=== PATIENT | female | born 1965 | race Caucasian/White ===

== ENCOUNTER 2018-07-29 20:18 | Emergency (ER) | payer OTHER ==
[~2018-07-29] VITALS: Ht 157.5 cm; Wt 104.3 kg
[2018-07-29 20:18] VITALS: BP 158/66
--- NOTE | 2018-07-29 20:26 | NUR ---
53 YO F BIBA FROM [facility] D/T FALL X 1 HOUR AGO . 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 PT C/O OF [place]ARP 8/10 RIGHT LEG PAIN FROM HAMSTRING RADIATING INTO CALF. PT STATES SHE IS UNABLE TO BEAR WEIGHT ON AFFECTED LEG. -- NO OBVIOUS GROSS TRAUMA NOTED. PEDAL PULSES STRONG, EQUAL. MOTOR FUNCTION IN TOES IN TACT. PAIN INCREASES WITH MOVEMENT. -- PT AWAKE, ALERT, CALM, COOPERATIVE. APPEARS TO BE IN PAIN WITH FACIAL GRIMACING. ANSWERS QUESTIONS APPROPRIATELY. BEHAVIOR APPROPRIATE. -- SKIN PINK, WARM, DRY. BREATHING EVEN, UNLABORED. PMH-- DENIES SX-- CATARACT SX, 2014
[2018-07-29] MEDS ORDERED: MORPHINE SULFATE 4 MG/ML SYR IM ONE (21:10)
== END 2018-07-29 21:32 | disposition home or self-care (01) ==
LOC: MED 20:18
DX: M79.604 Pain in right leg (principal); F17.200 Nicotine dependence, unspecified, uncomplicated
CPT/HCPCS: 96372; 99283; J2270